=== PATIENT | female | born 1960 | race Caucasian/White ===

== ENCOUNTER 2018-04-04 10:34 | Outpatient (CLI) | payer OTHER | END 2018-04-04 10:35 | disposition home or self-care (01) | LOC: BICMAMMO 10:34 | PROVIDERS: ATTEND Obstetrics & Gynecology | DX: Z12.31 Encounter for screening mammogram for malignant neoplasm of breast (principal); Z80.3 Family history of malignant neoplasm of breast | CPT/HCPCS: 77063; 77067; 87480; 87510; 87660; 88305 ==

== ENCOUNTER 2019-04-22 15:51 | Outpatient (CLI) | payer OTHER ==
--- NOTE | 2019-04-22 16:26 | MMO ---
Bilateral MAMMO Bilat Screen [facility]. CLINICAL HISTORY: Patient is 58 years old and is seen for screening. The patient has the following family history of breast cancer: daughter, at age 36. The patient has no personal history of cancer. VIEWS: The views performed were: bilateral craniocaudal with tomosynthesis and bilateral mediolateral oblique with tomosynthesis. FILMS COMPARED: The present examination has been compared to prior imaging studies performed at [facility] on 06/28/2011, 07/24/2012, 09/08/2013 and 04/04/2018. This study has been interpreted with the assistance of computer-aided detection. MAMMOGRAM FINDINGS: There are scattered fibroglandular densities. There are benign appearing calcifications seen in both breasts. There are no suspicious masses, suspicious calcifications, or new areas of architectural distortion. IMPRESSION: THERE IS NO MAMMOGRAPHIC EVIDENCE OF MALIGNANCY. A ROUTINE FOLLOW-UP MAMMOGRAM IN 1 YEAR IS RECOMMENDED. THE RESULTS OF THIS EXAM WERE SENT TO THE PATIENT. ACR BI-RADS Category 2 - Benign finding MAMMOGRAPHY NOTE: 1. A negative mammogram report should not delay a biopsy if a dominant of clinically suspicious mass is present. 2. Approximately 10% to 15% of breast cancers are not detected by mammography. 3. Adenosis and dense breasts may obscure an underlying neoplasm. Reported by: WISAM WORRELL MD Electonically Signed: [id number]
== END 2019-04-22 15:52 | disposition home or self-care (01) ==
LOC: BICMAMMO 15:51
PROVIDERS: ATTEND Obstetrics & Gynecology
DX: Z12.31 Encounter for screening mammogram for malignant neoplasm of breast (principal); Z80.3 Family history of malignant neoplasm of breast
CPT/HCPCS: 77063; 77067

== ENCOUNTER 2020-04-28 09:18 | Outpatient (CLI) | payer OTHER ==
--- NOTE | 2020-04-28 10:54 | MMO ---
Bilateral MAMMO Bilat Screen [facility]. CLINICAL HISTORY: Patient is 59 years old and is seen for screening. The patient has the following family history of breast cancer: daughter, at age 36. The patient has no personal history of cancer. VIEWS: The views performed were: bilateral craniocaudal with tomosynthesis and bilateral mediolateral oblique with tomosynthesis. FILMS COMPARED: The present examination has been compared to prior imaging studies performed at [facility] on 07/24/2012, 09/08/2013, 04/04/2018 and 04/22/2019. This study has been interpreted with the assistance of computer-aided detection. MAMMOGRAM FINDINGS: There are scattered fibroglandular densities. There are stable benign appearing calcifications seen in both breasts. There are no suspicious masses, suspicious calcifications, or new areas of architectural distortion. IMPRESSION: THERE IS NO MAMMOGRAPHIC EVIDENCE OF MALIGNANCY. A ROUTINE FOLLOW-UP MAMMOGRAM IN 1 YEAR IS RECOMMENDED. THE RESULTS OF THIS EXAM WERE SENT TO THE PATIENT. ACR BI-RADS Category 2 - Benign finding MAMMOGRAPHY NOTE: 1. A negative mammogram report should not delay a biopsy if a dominant of clinically suspicious mass is present. 2. Approximately 10% to 15% of breast cancers are not detected by mammography. 3. Adenosis and dense breasts may obscure an underlying neoplasm. Reported by: TINO AGOSTO MD Electonically Signed: [id number]
--- NOTE | 2020-04-29 07:09 | BD ---
EXAM: Bone densitometry using DEXA HISTORY: 59 yo female. Screening for postmenopausal osteoporosis FINDINGS: L1--bone mineral density 0.862 g/sq cm; T score -1.2 ; Z score -0.1 L2--bone mineral density 1.001 g/sq cm; T score -2.2 ; Z score 1.0 L3--bone mineral density 1.021 g/sq cm; T score -0.6 ; Z score 0.7 L4--bone mineral density 1.031 g/sq cm; T score -0.3 ; Z score 1.1 Total L1-L4--bone mineral density 0.987 g/sq cm; T score -0.5 ; Z score 0.7 Left femoral neck--bone mineral density0.720; T score -1.2 ; Z score 0.0 Total proximal left femur--bone mineral density 0.758; T score -1.5 ; Z score -0.7 IMPRESSION: Osteopenia
== END 2020-04-28 09:19 | disposition home or self-care (01) ==
LOC: BICMAMMO 09:18
PROVIDERS: ATTEND Family Medicine
DX: Z12.31 Encounter for screening mammogram for malignant neoplasm of breast (principal); Z13.820 Encounter for screening for osteoporosis; Z78.0 Asymptomatic menopausal state; Z80.3 Family history of malignant neoplasm of breast; M85.89 Other specified disorders of bone density and structure, multiple sites
CPT/HCPCS: 77063; 77067; 77080

== ENCOUNTER 2023-06-24 17:39 | Observation (INO) | payer BC ==
[~2023-06-24 17:39] MED LIST: Iopamidol-370 76% 500 ML MDV (1 ML CHARGE) ONE
[2023-06-24 18:18] LABS: #Basophils 0.1 thou/uL (0.0-0.2); #Eosinphils 0.1 thou/uL (0.0-0.7); #Monocytes 0.7 thou/uL (0.11-0.59); #Neutrophils 5.2 thou/uL (1.40-6.50); %Basophils 0.6 % (0.0-1.0); %Eosinophils 1.1 % (0.0-10.0); %Lymphocytes 24.5 % (21.0-51.0); %Monocytes 8.2 % (0.0-10.0); %Neutrophils 65.5 % (42.0-75.0); Hematocrit 37.9 % (36.0-47.0); Hemoglobin 12.9 g/dL (12.0-16.0); Mean Corpuscular Hemoglobin 30.4 pg (27.0-31.0); Mean Corpuscular Volume 89.4 fl (78.0-98.0); Mean Platelet Volume 9.3 fL (7.4-10.4); Platelet Count 255 10x3/uL (130-400); RBC Distribution Width 11.9 % (11.5-14.5); Red Blood Cell (RBC) Count 4.24 mill/uL (4.20-5.40); White Blood Cell (WBC) Count 7.9 10x3/uL (4.8-10.8)
[2023-06-24] MEDS ORDERED: Nitroglycerin 2% Ointment 1 INCH/1 GM Packet ONE (18:37)
[2023-06-24 18:42] LABS: ALT (SGPT) 11 U/L (8-55); AST (SGOT) 18 U/L (5-34); Albumin 4.3 g/dL (3.4-4.8); Alkaline Phosphatase 66 U/L (40-110); Anion Gap 15 mmol/L (10-20); BUN (Urea Nitrogen) 14 mg/dL (9.8-20.1); Bilirubin, Total 0.5 mg/dL (0.2-1.2); Calc. Creatinine Clearance 0 mL/min (70-130); Calcium 9.4 mg/dL (7.8-10.44); Carbon Dioxide 23 mmol/L (23-31); Chloride 104 mmol/L (98-107); Estimated GFR 89; Globulin 2.8 g/dL (2.4-3.5); Glucose 103 mg/dL (80-115); Lipase 14 U/L (8-78); Potassium 3.8 mmol/L (3.5-5.1); Protein, Total 7.1 g/dL (5.8-8.1); Sodium 138 mmol/L (136-145)
[2023-06-24 18:51] LABS: Troponin I Less than 0.010 ng/mL (< 0.028)
[2023-06-24] MEDS ORDERED: fentaNYL 50 mcg/mL 1 mL Vial ONE (18:55)
[2023-06-24] MEDS ORDERED: Ondansetron ODT 4 MG TAB SL PRN (21:15)
[2023-06-24] MEDS ORDERED: Ondansetron PF 4 MG/2 ML Vial IVP PRN (21:15)
[2023-06-24 21:19] LABS: Troponin I Less than 0.010 ng/mL (< 0.028)
[2023-06-24] MEDS: Sodium Chloride 0.9% 1,000 ML IV SCH (21:42)
[2023-06-24 21:46] VITALS: BMI 25.0
[2023-06-24] MEDS ORDERED: Acetaminophen 325 MG TAB PO PRN (22:35)
[2023-06-24] MEDS ORDERED: Morphine 2 MG/ML VIAL SLOW IVP PRN (22:37)
[2023-06-24] MEDS ORDERED: Acetaminophen 325 MG TAB ONE (22:42)
[2023-06-25 01:10] LABS: Troponin I Less than 0.010 ng/mL (< 0.028)
[2023-06-25 05:05] LABS: #Eosinphils 0.1 thou/uL (0.0-0.7); #Monocytes 0.5 thou/uL (0.11-0.59); #Neutrophils 2.8 thou/uL (1.40-6.50); %Basophils 0.5 % (0.0-1.0); %Eosinophils 1.9 % (0.0-10.0); %Lymphocytes 39.6 % (21.0-51.0); %Monocytes 9.1 % (0.0-10.0); %Neutrophils 48.7 % (42.0-75.0); Hematocrit 35.7 % (36.0-47.0); Hemoglobin 11.9 g/dL (12.0-16.0); Mean Corpuscular HGB CONC 33.3 g/dL (32.0-36.0); Mean Corpuscular Hemoglobin 29.9 pg (27.0-31.0); Mean Corpuscular Volume 89.7 fl (78.0-98.0); Mean Platelet Volume 9.2 fL (7.4-10.4); Platelet Count 227 10x3/uL (130-400); RBC Distribution Width 12.2 % (11.5-14.5); Red Blood Cell (RBC) Count 3.98 mill/uL (4.20-5.40); White Blood Cell (WBC) Count 5.8 10x3/uL (4.8-10.8)
[2023-06-25 05:36] LABS: Anion Gap 10 mmol/L (10-20); BUN (Urea Nitrogen) 16 mg/dL (9.8-20.1); Calc. Creatinine Clearance 83 mL/min (70-130); Calcium 8.4 mg/dL (7.8-10.44); Carbon Dioxide 27 mmol/L (23-31); Cardiac Risk 5.7 (Less than 4.5); Chloride 106 mmol/L (98-107); Cholesterol 273 mg/dl (< 200 Desired); Estimated GFR 89; Glucose 104 mg/dL (80-115); HDL Cholesterol 48 mg/dL (>60 Neg Risk); LDL Cholesterol, Calculated 198 mg/dL; Potassium 3.6 mmol/L (3.5-5.1); Sodium 139 mmol/L (136-145); Triglycerides 136 mg/dL (Less than 150)
[2023-06-25 05:41] LABS: Hemoglobin A1c 5.2 % (4.0-6.0)
[2023-06-25 06:29] VITALS: TEMP 97.6
[2023-06-25] MEDS ORDERED: Enoxaparin 40 MG (0.4 mL) SYRINGE SC SCH (09:00)
[2023-06-25] MEDS ORDERED: ADENOSINE 60 MG/20 ML SDV ONE (09:12)
[2023-06-25] MEDS ORDERED: Regadenoson 0.4 MG/5 ML SYRINGE ONE (09:26)
[2023-06-25] MEDS: Sodium Chloride 0.9% 1,000 ML IV SCH (12:02)
[2023-06-25 14:58] VITALS: BP 164/64
[2023-06-25] MEDS ORDERED: Atorvastatin Calcium 10 MG TAB PO SCH (21:00)
[2023-06-26] MEDS ORDERED: Levothyroxine Sodium 75 MCG TAB PO SCH (06:00)
== END 2023-06-25 16:28 | disposition home or self-care (01) ==
LOC: ERS 17:39 → ERHOLD 20:11
PROVIDERS: ADMIT Internal Medicine; ATTEND Physician Assistant Medical
DX: R07.9 Chest pain, unspecified (principal); E78.5 Hyperlipidemia, unspecified; E03.9 Hypothyroidism, unspecified; Z98.890 Other specified postprocedural states; Z79.890 Hormone replacement therapy
CPT/HCPCS: 36415; 71045; 71275; 78452; 80048; 80053; 80061; 83036; 83690; 83880; 84484; 85025; 85379; 93005; 93017; 94760; A9502; J0153; J1650; J2785; J3010; J7050; Q9967